=== PATIENT | female | born 1990 | race Caucasian/White ===

== ENCOUNTER 2017-09-29 13:22 | Inpatient (IN) | payer OTHER ==
[~2017-09-29] VITALS: Ht 152.4 cm; Wt 62.9 kg
[~2017-09-29 13:22] MED LIST: CLONAZEPAM0.5 M2 PO; DEXTROAMP-AMPHE20 MG PO; GEODON60 MG PO; PROPRANOLOL HCL20 M1 PO; TRAZODONE HCL50 M1 PO; ZIPRASIDONE HCL80 M1 PO; [UNRECOGNIZED DRUG - OTHER] PO
--- NOTE | 2017-09-29 15:19 | ED PSYCHIATRIC COMPLAINT ---
See Addendum History of Present Illness General Chief Complaint: Psychiatric Related Complaint Stated Complaint: OFF MEDS AND MANIC, PER PT Source: patient, family Exam Limitations: no limitations Vital Signs & Intake/Output Vital Signs & Intake/Output Vital Signs Date Time Temp Pulse Resp B/P B/P Pulse O2 O2 Flow FiO2 Mean Ox Delivery Rate 09/29 1622 98.2 80 20 140/84 09/29 1342 97.3 95 16 157/105 99 Room Air Allergies Coded Allergies: erythromycin base (HIVES 10/30/15) poison aleyda extract (HIVES/SWELLING 10/30/15) Reconcile Medications Dextroamphetamine/Amphetamine (Dextroamp-Amphetamin 20 MG Tab) 20 MG TABLET 1 TAB PO TID ADD/ADHD (Reported) Norethindrone (LYZA) 0.35 MG TABLET 1 TAB PO DAILY CONTROL (Reported) Propranolol HCl 20 MG TABLET 1 TAB PO TID RESTLESSNESS/ANXIETY (Reported) Ziprasidone Hydrochloride (Geodon) 60 MG CAPSULE 2 CAP PO QPM MENTAL HEALTH ( Reported) Triage Note: 27 Y/O FEMALE C/O BEING "OFF MEDS FOR 3 MONTHS". STATES SHE TAPERED OFF HER LITHIUM AND ADHD MEDICATION AND, PER MOTHER, "HASNT BEEN RIGHT SINCE". C/O "CONFUSION, CANT FINISH A SENTENCE, SUPPRESSED APPETITE". PT DENIES DRUG/ALCOHOL USE. DENIES SI/HI. CALM/COOPERATIVE Triage Nurses Notes Reviewed? yes : No Patient currently breastfeeds: No HPI: 27yoF w/ hx of OCD, ADHD and Bipolar, dx at 16yo here w/ depression. According to patient, she was since her dx, she has been on several medications including Geodon, Vyvanse and Letuda but intolerant 2/2 SE. She was started on [place] 600mg BID and Trazodone 25m,g PRN insomnia about 1yr ago. She was stopped taking her medications around Jul of last year because she had developed RUE tingling. Mother, who was at bedside, also reported patient might have weaned herself off of her medications because she was trying to get . Since stopping her meds, she has had cycles of moses (pressured speech, hypervigilance, going on shopping spree and hypersexuality) and depression ( lethargy, staring into space, confusion and dysorientation). She is currently in her depression cycle and has also been experiencing a lot of forgetfulness, hopelessness and anxiety about life. She denies using any other meds, drugs. She also denies any fevers, chills, N/V. LMP 09/15/17; sexually active (Shawn Hernandez) Past History Travel History Traveled to [place] past 21 day No Medical History Any Pertinent Medical History? 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 Yes (Yesy STUDENTShawn) Review of Systems Review of Systems Constitutional: Reports: see HPI. Denies: chills, diaphoresis, fever, malaise, weakness. (Shawn Hernandez) Physical Exam Physical Exam General Appearance: well developed/nourished, awake, comfortable, slow speech Neurological/Psychiatric: no motor/sensory deficits, awake, oriented x 3 SAD PERSONS SAD PERSONS Response Value Age <19 or >45 years? yes 1 Depression/Hopelessness? yes 2 Rational Thinking Loss? yes 2 Social Support? has support 0 Total 5 SAD PERSONS Done? yes (Yesy STUDENTShawn) Progress Differential Diagnosis: drug intoxication, drug overdose, drug withdrawal, electrolyte abnormality, hypoglycemia, hypothyroidism Plan of Care: Orders Procedure Date/time Status LITHIUM 10/03 0600 Active Regular Diet 09/30 B Active EKG 09/29 1828 Active Lab Add-on Test 09/29 1825 Active Patient Data - inpatient psych 09/29 182 Active Admit to inpatient psych 09/29 1821 Active TSH REFLEX 09/29 1505 Active GLYCOSYLATED HGB 09/29 1505 Active Add-on Test (ER Only) 09/29 1503 Active Add-on Test (ER Only) 09/29 1501 Active URINE DRUG SCREEN FOR ER ONLY 09/29 1436 Complete LITHIUM 09/29 1436 Active HUMAN BETA HCG SCREEN 09/29 1436 Active ETHANOL 09/29 1436 Active CBC WITHOUT DIFFERENTIAL 09/29 1436 Complete BASIC METABOLIC PANEL 09/29 1436 Active ED CRISIS PSYCH CONSULT 09/29 1436 Active Intake & Output 09/29 1429 Active Vital Signs 09/29 UNK Active Nursing Misc 09/29 UNK Active Alternative Nursing Therapy 09/29 UNK Active Activity/Ambulation 09/29 UNK Active Current Medications Sig/Patricio Start time Last Medication Dose Stop Time Status Admin Non-Formulary 0 DAILY@0800 09/30 0800 UNVr Medication (NON FORMULARY) Omeprazole 20 MG DAILY AC 09/30 0700 AC (Prilosec) [place] Carbonate 600 MG BID@0800,09/29 AC ([place] Carbonate) Acetaminophen 650 MG Q6P PRN 09/29 183 AC (Tylenol) Al Hydroxide/Mg 30 ML Q4-6 PRN PRN 09/29 1829 AC Hydroxide (Maalox Plus) Albuterol Sulfate 2 PUF Q6P PRN 09/29 183 AC (Ventolin) Benztropine Mesylate 1 MG Q6P PRN 09/29 183 AC (Cogentin 1 MG Tablet) Benztropine Mesylate 1 MG Q6P PRN 09/29 1829 AC (Cogentin) Gabapentin 300 MG Q6P PRN 09/29 183 AC (Neurontin) Haloperidol 5 MG Q6P PRN 09/29 1829 AC (Haldol) Haloperidol 5 MG Q6P PRN 09/29 183 AC (Haldol) Lorazepam 2 MG Q6P PRN 09/29 183 AC (Ativan) Magnesium Hydroxide 30 ML AT BEDTIME PRN 09/29 183 AC (Milk Of Magnesia) Nicotine 2 MG Q2P PRN 09/29 183 AC (Nicotine) Trazodone HCl 25 MG AT BEDTIME NEED.. 09/29 1829 AC (Desyrel) Laboratory Tests 09/29/17 1505: Anion Gap 11, Estimated GFR > 60, BUN/Creatinine Ratio 13.3, Glucose 105 H, Hemoglobin A1c Pending, Calcium 10.1, TSH &T3 &Free T4 Intrp 0.772, Total Beta HCG NEGATIVE, CBC w Diff NO MAN DIFF REQ, RBC 4.51, MCV 93.0, MCH 30.7, MCHC 33.0, RDW 14.9 H, MPV 8.8, Gran % 74.8, Lymphocytes % 18.5 L, Monocytes % 6.0, Eosinophils % 0.2, Basophils % 0.5, Absolute Granulocytes 8.8 H, Absolute Lymphocytes 2.2, Absolute Monocytes 0.7 H, Absolute Eosinophils 0, Absolute Basophils 0.1, [place] < 0.2 L, Serum Alcohol < 10.0 09/29/17 1445: Urine Opiates Screen < 100.00, Methadone Screen < 40, Barbiturate Screen < 60, Ur Phencyclidine Scrn < 6.00, Amphetamines Screen > 1450 H, U Benzodiazepines Scrn < 85, Urine Cocaine Screen < 50, Urine Cannabis Screen < 5.00 Patient to be evaluated w/ blood and urine tox screens, CBC, SMP, TSH and test. Crisis team consulted Care of patient will be continued by Dr. Rosario (Shawn Hernandez) Departure Departure Condition: Stable Referrals: Kaylynn Shepard MD (PCP/Family) Departure Forms: Customer Survey General Discharge Information (Shawn Hernandez) Departure Disposition: STILL A PATIENT Clinical Impression Primary Impression: Bipolar 1 disorder Psych Admission Note Psychiatric Admission: I have reviewed all the pertinent lab results and diagnostic results. KEERTHI GUARDADO will be admitted to our inpatient Psychiatric unit for treatment and care. (Marlene VARGAS,Imre Forrest) Critical Care Note Critical Care Note Critical Care Time: 30-74 min (Shawn Hernandez) ED Attending Observation Initial Observation Note: I have seen and personally examined KEERTHI GUARDADO on 09/29/17 at 1532. I agree with the current emergency department documentation. The disposition (admission or discharge) is uncertain at this time, she needs a period of observation for the following reason(s): The ED Nurse caring for this patient has been personally informed as to what the patient is being observed for. (Shawn Hernandez)
[2017-09-29 15:38] LABS: ABSOLUTE BASOPHIL COUNT 0.1 /CUMM (0.0-0.2); ABSOLUTE EOSINOPHIL COUNT 0 /CUMM (0.0-0.7); ABSOLUTE GRANULOCYTE CT 8.8 /CUMM (1.4-6.5); ABSOLUTE LYMPH COUNT 2.2 /CUMM (1.2-3.4); ABSOLUTE MONOCYTE COUNT 0.7 /CUMM (0.10-0.60); BASOPHIL % 0.5 % (0.0-2.0); EOSINOPHIL % 0.2 % (0-5); GRANULOCYTE % 74.8 % (42.2-75.2); MEAN CORPUSCULAR HGB 30.7 PG (27.0-31.0); MEAN PLATELET VOLUME 8.8 FL (7.4-10.4); PLATELET COUNT 467 /CUMM (130-400); RBC DISTRIBUTION WIDTH 14.9 % (11.5-14.5); RED BLOOD CELL CT 4.51 /CUMM (4.20-5.40); WHITE BLOOD CELL COUNT 11.8 /CUMM (4.8-10.8)
[2017-09-29 16:12] LABS: LITHIUM < 0.2 mmol/L (0.6-1.2)
--- NOTE | 2017-09-29 18:45 | ED PSYCH CRISIS CONSULTATION ---
Crisis Consult Basic Assessment Date of Consult: 09/29/17 Responsible Person/Accompanied By: mother Insurance Authorization: Insurance #1: Insurance name: LISA HOANG Phone number: Policy number: [id number] Group number: [id number] Authorization number: ED Provider: Patient's ED Provider: Imer Rosario MD Primary Care Physician: Patient's PCP: Kaylynn Shepard MD PCP's Current Psychiatrist: Michael Joshi MD Chief Complaint: Psychiatric Related Complaint Patient's Quote: none stated Present Illness: Patient is a 27 year old, single, female brought to the ED accompanied by her mother for "bizarre behaviors." She has a history of Bipolar Disorder, PTSD and ADHD. She is currently prescribed [place] Carbonate 600 mg 2x daily, Trazodone 50 mg at bedtime, and Vyvanse 50 mg daily and is currently in treatment at [facility]. During crisis consultation, patient did not verbally respond to questions, but shook her head "no" when asked if she is suicidal or homicidal and experiencing hallucinations. Patient mumbled "If I hurt myself, I hurt other people." Consulted with patient's mother, Nkechi who reports that patient has a history of medication non-compliance. Consulted with Monse Bryan APRN who reports concerns with mood lability, confusion, sleep disturbance, disorganization, distractibility, judgement, and poor insight. Case consulted with Dr. Joshi. Patient meets inpatient criteria and will be admitted to [facility] voluntarily. Patient's Address: [address] [place] [address] Other Phone Number: Who Do You Live With? Mother Family/Informants Interviewed: mother Allergies - Coded Allergies: erythromycin base (HIVES 10/30/15) poison aleyda extract (HIVES/SWELLING 10/30/15) Current Medications - Scheduled Medications Dextroamphetamine/Amphetamine (Dextroamp-Amphetamin 20 MG Tab) 20 MG TABLET 1 TAB PO TID ADD/ADHD #90 (Reported) Entered as Reported by Mignon Barfield on 04/20/16 1430 Norethindrone (LYZA) 0.35 MG TABLET 1 TAB PO DAILY CONTROL (Reported) Entered as Reported by Mignon Barfield on 04/20/16 1740 Propranolol HCl 20 MG TABLET 1 TAB PO TID RESTLESSNESS/ANXIETY #90 (Reported) Entered as Reported by Mignon Barfield on 04/20/16 1731 Ziprasidone Hydrochloride (Geodon) 60 MG CAPSULE 2 CAP PO QPM MENTAL HEALTH # 60 (Reported) Entered as Reported by Mignon Barfield on 04/20/16 1741 Laboratory Results: Laboratory Tests 09/29/17 1505: Anion Gap 11, Estimated GFR > 60, BUN/Creatinine Ratio 13.3, Glucose 105 H, Hemoglobin A1c Pending, Calcium 10.1, TSH &T3 &Free T4 Intrp 0.772, Total Beta HCG NEGATIVE, CBC w Diff NO MAN DIFF REQ, RBC 4.51, MCV 93.0, MCH 30.7, MCHC 33.0, RDW 14.9 H, MPV 8.8, Gran % 74.8, Lymphocytes % 18.5 L, Monocytes % 6.0, Eosinophils % 0.2, Basophils % 0.5, Absolute Granulocytes 8.8 H, Absolute Lymphocytes 2.2, Absolute Monocytes 0.7 H, Absolute Eosinophils 0, Absolute Basophils 0.1, [place] < 0.2 L, Serum Alcohol < 10.0 09/29/17 1445: Urine Opiates Screen < 100.00, Methadone Screen < 40, Barbiturate Screen < 60, Ur Phencyclidine Scrn < 6.00, Amphetamines Screen > 1450 H, U Benzodiazepines Scrn < 85, Urine Cocaine Screen < 50, Urine Cannabis Screen < 5.00 Past History Past Medical History Neurological: NONE EENT: NONE Cardiovascular: NONE Respiratory: asthma Gastrointestinal: NONE Hepatic: NONE Renal: NONE Musculoskeletal: NONE Psychiatric: bipolar disease, ADHD Endocrine: NONE Blood Disorders: NONE Cancer(s): NONE 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 She does appear to have good therapuetic relationships. Physical Limitations (Interventions): None noted Psychiatric Treatment History Psych Treatment Psychiatric Treatment Yes Inpatient Treatment Yes Outpatient Treatment Yes Location of Treatment [facility] Reason for Treatment Bipolar Disorder Dates of Treatment August, Response to Treatment Poor Diagnosis by History: Bipolar Disorder Substance Use/Abuse History Drug Use/Abuse Substances Used/Abused No First Use N/A Last Used N/A How much used/taken N/A How often N/A For how long N/A Route of use N/A Substance Abuse Treatment Substance Abuse Treatment Past Substance Abuse [place] No Inpatient Treatment No Outpatient Treatment No Location of Treatment N/A Reason for Treatment N/A Dates of Treatment N/A Response to Treatment N/A Current Mental Status Mental Status Orientation: Current situation Affect: Flat Speech: Poverty Neuro-vegetative: Anhedonia, Appetite Decreased, Concentration Poor, Energy Decreased, Sleep Disturbance Appearance Appearance- Dress/Hygiene: Patient appeard unkempt, dressed in hospital scrubs and hospital mask. Behaviors Thought Process: Disorganized Memory: Impaired Insight: Poor SI/HI Risk Assessment Past Suicidal Ideation/Attempts Yes Current Suicidal Ideation/Att No Past Homicidal Ideation/Att: No Current Homicidal Ideation/Attempts No Degree of Intent: None Gravely Disabled: Inability, Lack of Insight, Poor Judgment Risk Factors: high anxiety/distress, SA/MH hospitalized Lethality Ratin PTSD Checklist PTSD Done? pt unable to participate ED Management Sitter: Yes Restraints: No DSM5/PS Stressors/Medical Prob Diagnosis' (DSM 5, Stressors, Medical): F31.4 Bipolar disorder, MRE depressed, severe, F90.0 ADD; Problems with primary support group, financial problems, history of trauma Current GAF: 25 Departure Disposition Psych Medical Clearance Date: 09/29/17 Medically Cleared at: 1715 Time Started: 1714 Time Ended: 1814 Psychiatrist Consulted: Michael Joshi MD Date Disposition Established: 09/29/17 Time Disposition Established: 1814 Plan for Disposition - Modality: Inpatient Psychiatry Facility: [facility] Rationale for Disposition: Patient presents to the ED due to medication non-compliance, mood lability, confusion, poor insight, disorganization. Case consulted with Dr. Joshi and patient will be admitted to [facility]. Type of IP Admission: Voluntary Referrals Kaylynn Shepard MD (PCP/Family)
--- NOTE | 2017-09-29 20:02 | IP CRISIS DIAG ASSESS PSYCH ---
See Addendum Diagnostic Assessment Basic Assessment Insurance Authorization: Insurance #1: Insurance name: LISA HOANG Phone number: Policy number: [id number] Group number: [id number] Authorization number: Awaiting a call from manager care reference number [id number] Primary Care Physician: Patient's PCP: Kaylynn Shepard MD PCP's Patient's Quote: none stated Present Illness: Patient is a 27 year old, single, female brought to the ED accompanied by her mother for "bizarre behaviors." She has a history of Bipolar Disorder, PTSD and ADHD. She is currently prescribed [place] Carbonate 600 mg 2x daily, Trazodone 50 mg at bedtime, and Vyvanse 50 mg daily and is currently in treatment at [facility]. During crisis consultation, patient did not verbally respond to questions, but shook her head "no" when asked if she is suicidal or homicidal and experiencing hallucinations. Patient mumbled "If I hurt myself, I hurt other people." Consulted with patient's mother, Nkechi who reports that patient has a history of medication non-compliance. Consulted with Monse Bryan APRN who reports concerns with mood lability, confusion, sleep disturbance, disorganization, distractibility, judgement, and poor insight. Case consulted with Dr. Joshi. Patient meets inpatient criteria and will be admitted to [facility] voluntarily. Patient's Address: [address] [place] [address] Other Phone Number: Who Do You Live With? Mother Feel Safe Where You Live? Yes Feel Safe in Your Relationship Yes Marital Status: single Do You Have Children? No Primary Language? Grenadian Language(s) Spoken At Home: Grenadian Family/Informants Interviewed: mother Allergies - Coded Allergies: erythromycin base (HIVES 10/30/15) poison aleyda extract (HIVES/SWELLING 10/30/15) Current Medications - Scheduled Medications Dextroamphetamine/Amphetamine (Dextroamp-Amphetamin 20 MG Tab) 20 MG TABLET 1 TAB PO TID ADD/ADHD #90 (Reported) Entered as Reported by Mignon Barfield on 04/20/16 1730 Norethindrone (LYZA) 0.35 MG TABLET 1 TAB PO DAILY CONTROL (Reported) Entered as Reported by Mignon Barfield on 04/20/16 1740 Propranolol HCl 20 MG TABLET 1 TAB PO TID RESTLESSNESS/ANXIETY #90 (Reported) Entered as Reported by Mignon Barfield on 04/20/16 1731 Ziprasidone Hydrochloride (Geodon) 60 MG CAPSULE 2 CAP PO QPM MENTAL HEALTH # 60 (Reported) Entered as Reported by Mignon Barfield on 04/20/16 1741 Consequences of Psych Med Use: N/A Lab Results: Laboratory Tests 09/29/17 1505: Anion Gap 11, Estimated GFR > 60, BUN/Creatinine Ratio 13.3, Glucose 105 H, Hemoglobin A1c Pending, Calcium 10.1, TSH &T3 &Free T4 Intrp 0.772, Total Beta HCG NEGATIVE, CBC w Diff NO MAN DIFF REQ, RBC 4.51, MCV 93.0, MCH 30.7, MCHC 33.0, RDW 14.9 H, MPV 8.8, Gran % 74.8, Lymphocytes % 18.5 L, Monocytes % 6.0, Eosinophils % 0.2, Basophils % 0.5, Absolute Granulocytes 8.8 H, Absolute Lymphocytes 2.2, Absolute Monocytes 0.7 H, Absolute Eosinophils 0, Absolute Basophils 0.1, [place] < 0.2 L, Serum Alcohol < 10.0 09/29/17 1445: Urine Opiates Screen < 100.00, Methadone Screen < 40, Barbiturate Screen < 60, Ur Phencyclidine Scrn < 6.00, Amphetamines Screen > 1450 H, U Benzodiazepines Scrn < 85, Urine Cocaine Screen < 50, Urine Cannabis Screen < 5.00 Toxicology Screen Completed? Yes Results: positive (prescribed Vyvanse) Symptoms of Use: N/A Past History Past Medical History Medical History: None/Denies Past Surgical History Surgical History Abuse/Trauma History Trauma History/Current Trauma: PTSD symptoms Victim or Perpretator? victim (N/A) Patient's Age at Time of Trauma: 0 (unknown) History of Trauma/Abuse Treatment? No Abuse/Trauma Treatment: N/A Legal History Current Legal Status: none Have you ever been arrested? No Number of Arrests: [address] Dates: N/A Contact Centre Supervisor N/A Psychosocial History Strengths/Capabilities: The patient appears to have good therapuetic relationships. Physical Limitations (Interventions): None noted Psychiatric Treatment History Psych Treatment Psychiatric Treatment Yes Inpatient Treatment Yes Outpatient Treatment Yes Location of Treatment [facility] Reason for Treatment Bipolar Disorder Dates of Treatment August, Response to Treatment Poor Diagnosis by History: Bipolar Disorder Risk Factors: high anxiety/distress, SA/MH hospitalized Substance Use/Abuse History Drug Use/Abuse minimum 12mo Hx Substances Used/Abused No First Use N/A Last Used N/A How much used/taken N/A How often N/A For how long N/A Route of use N/A Substance Abuse Treatment Substance Abuse Treatment Past Substance Abuse [place] No Inpatient Treatment No Outpatient Treatment No Location of Treatment N/A Reason for Treatment N/A Dates of Treatment N/A Response to Treatment N/A Sexual History Sexually Active Yes # of partners 1 Sexual Orientation Heterosexual Use of Protection No Sexual Concerns: None noted Education History Highest Level of Education: Associates degree in nursing Preferred Learning Style: visual Current Mental Status Mental Status Orientation: Current situation Affect: Flat Speech: Poverty Neuro-vegetative: Anhedonia, Appetite Decreased, Concentration Poor, Energy Decreased, Sleep Disturbance Appearance Appearance- Dress/Hygiene: Patient appeard unkempt, dressed in hospital scrubs and hospital mask. Behaviors Thought Process: Disorganized Memory: Impaired Insight: Poor SI/HI Risk Assessment - Minimum 6mo History- Past Suicidal Ideation/Attempts Yes Current Suicidal Ideation/Att No Past Homicidal Ideation/Att: No Current Homicidal Ideation/Attempts No Degree of Intent: None Gravely Disabled: Inability, Lack of Insight, Poor Judgment Risk Factors: high anxiety/distress, SA/MH hospitalized Lethality Ratin Needs/Init TX Plan/Goals: Patient to be admitted to inpatient unit for safety and symptom stabilzation. Patient to attend individual and family sessions, work with provider on medication evaluation and work with the social insurance specialist to transition back to care in the community. AUDIT-C Questionnaire: AUDIT-C Questionnaire: Response Value ETOH use in the past year Never 0 # drinks typical/day Doesn't Drink 0 6 or > drinks per occasion Never 0 Total 0 DSM5/PS Stressors/Medical Prob Diagnosis' (DSM 5, Stressors, Medical): F31.4 Bipolar disorder, MRE depressed, severe, F90.0 ADD; Problems with primary support group, financial problems, history of trauma Current GAF: 25
[2017-09-29 20:03] VITALS: BP 143/91
[2017-09-29] MEDS ORDERED: LITHIUM CARBON600 M1 PO (21:03)
[2017-09-29] MEDS ORDERED: VYVANSE50 M1 PO (21:07)
[2017-09-29] MEDS ORDERED: TRAZODONE HCL50 M1 PO (21:10)
[2017-09-29] MEDS ORDERED: MELATONIN3 M4 PO (21:13)
[2017-09-29] MEDS ORDERED: VENTOLIN HFA18 GM (21:58)
[2017-09-30 07:35] VITALS: BP 128/81
--- NOTE | 2017-09-30 08:27 | CPS PROVIDER INIT ASMT PSYCH ---
Psychiatric Admission Nurse Emergency's Note Reviewed: Yes Patient Seen and Examined: Yes Identifying Information: Patient is a 27-year-old single white female Chief Complaint: brought to the ED accompanied by her mother for "bizarre behaviors." Reaction to Hospitalization: The patient did not seem to mind being hospitalized History of Present Illness Onset of Illness: She has a history of Bipolar Disorder, PTSD and ADHD. She is currently prescribed Crafton Carbonate 600 mg 2x daily, Trazodone 50 mg at bedtime, and Vyvanse 50 mg daily and is currently in treatment at [facility]. During crisis consultation, patient did not verbally respond to questions, but shook her head "no" when asked if she is suicidal or homicidal and experiencing hallucinations. Patient mumbled "If I hurt myself, I hurt other people." Consulted with patient 's mother, Nkechi who reports that patient has a history of medication non- compliance. Consulted with Monse Bryan APRN who reports concerns with mood lability, confusion, sleep disturbance, disorganization, distractibility, judgement, and poor insight. Circumstances Leading to Admission: The patient's mother or observed bizarre behaviors, appointment to review the patient does not fact seem to be exhibiting psychotic symptoms and signs Problem(s) Justifying Need for Admission: Psychotic episode, it seems that it might be a mixed state of a bipolar disorder Past Psychiatric History Past Diagnosis(es)- if any: Bipolar mood disorder Attention deficit disorder Past Precipitating Factors- if any: Unclear - Include inpatient and outpatient treatment Treatment History: The patient has been most recently in the intensive outpatient program at Before that, she was with outpatient psychiatric services (OPS) History of Suicide Attempts or Gestures in 8th grade. Patient reports getting bullied in school and she "swallowed a bottle of apsirin". Patient di not report this to anyone for several months and at the time she "threw up" all the pills. School counselor was told and wanted her to seek mental health treatment. Substance Abuse History: The patient used cocaine for 1 or 2 years between [employer] and senior high schools she also used marijuana in high school, she reported that she was using it "socially" for about a year or so The patient also reported that she used heroin around the year 2005 when she was a senior in high school she reported that she used about 2 bags daily for about 1 or 2 years, she was insufflating it denied injecting Allergies: Coded Allergies: erythromycin base (HIVES 10/30/15) poison aleyda extract (HIVES/SWELLING 10/30/15) Home Med List: Crafton, Vyvanse - Include any medical condition(s) that may - impact the patient's recovery/remission Past History Medical History Neurological: NONE EENT: NONE Cardiovascular: NONE Respiratory: asthma Gastrointestinal: NONE Hepatic: NONE Renal: NONE Musculoskeletal: NONE Psychiatric: bipolar disease, ADHD Endocrine: NONE Blood Disorders: NONE Cancer(s): NONE 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 - #1 Recognizing dangerous situations. - #2 Coping Skills. - #3 Basic information about quitting. Status of Tobacco Cessation Counseling: #1, #2 AND #3 Completed Cessation Med Status Nicotine Gum Ordered Alcohol Screening - ETOH screen POS if BAL >=80 or Audit-C>= M4/F3 Audit-C Score from Diag Assess: 0 Blood Alcohol Level: Laboratory Tests 09/29 1505 Toxicology Serum Alcohol (<10 MG/DL) < 10.0 Alcohol Use Screening Results: Neg per Audit C &/or BAL - If ETOH counseling indicated - the following topics are required. - #1 Express concern about the patient's - drinking at unhealthy levels, include informing - of national norms for moderate drinking: - men <= 14 drinks/week, max 4 drinks/occasion - women <= 7 drinks/week, max 3 drinks/occasion - #2 Providing feedback, including linking alcohol to - negative physical effects (liver injury, hypertension) - negative emotional effects (relationship problems and - depression) - negative occupational consequences (reduced work - performance) - #3 Advising the patient to abstain from alcohol or - to drink below national norms for moderate drinking - (as listed above). Status of ETOH Use Counseling: N/A B/C NO ETOH Use Metabolic Screening - Screen if on a Neuroleptic Medication - Metabolic screening should include: - Blood Pressure, BMI, Glucose or Hgb A1c, & a - Lipid profile from within the past 365 days. Metabolic Screening ([X]) Not Applicable, patient not on a neuroleptic. Exam and Plan Mental Status Examination Ambulation Status: Steady gait Appearance: Dark circles around her eyes Attitude towards examiner: She was cooperative Psychomotor activity: Slightly elevated psychomotor activity/fidgetiness Behavior: Laughed to herself a few times, very likely she is responding to internal stimuli Quality of speech: It was not pressured, some tangents, it was not slurred Affect: Labile, she cried and laughed several times during the interview, the laughter seemed inappropriate for the content of the conversation Mood: The patient described her mood as up and down Suicidal Ideation: She denied thinking of suicide Homicidal Ideation: She denied thinking of violence or homicide Hallucinations: She initially acknowledged hallucinations and she insisted that it was "thoughts " Paranoid/Delusional Material: She did acknowledge feeling paranoid, she described herself as being very guarded and suspicious, there were no specific delusional content however Difficulties with thought organization: She did seem to be struggling to organize her thoughts into a coherent conversation Insight: Partial Judgment: Impaired Orientation: Oriented to time place and person Cognition: Struggling with attention and concentration, struggling with information processing, most likely because of her underlying significant thought disorder and most likely hallucinations as well Memory Function: Did not seem to have a gross impairment in his short-term memory Estimate of intellectual functioning: Average Assets/Strengths Patient Identified Assets/Strengths: She seems to be likable, honest, and she has a supportive family, and a good education Impression/Plan Impression and Plan: A 27-year-old single white female who presented from the intensive outpatient program for what seems to be psychotic state most likely a mixed state of a bipolar, denying thoughts of suicide or homicide but showing no objective evidence of some psychosis going on - Include all active medical diagnosis that require tx DSM 5 Diagnosis(es): Bipolar 1 and mixed state, rule out other psychotic disorders - Initial Tx Plan for Active Psych & Medical Conditions Treatment Plan: Inpatient psychiatric care with safety checks every 15 minutes Crafton was resumed at 600 mg a twice daily and the blood level will be obtained in 4 days or so The patient was prescribed 1 mg of Ativan times once after the interview because she was extremely distraught and seems to be actively hallucinating probably although she denied it Nursing assessments Vital signs and education about symptoms and medication by the nursing staff The social work staff to obtain collateral information made with the patient for full biopsychosocial assessment and reach out to family members as well as outside providers to coordinate aftercare plans and discharge plans The patient will be placed on regular Ativan 1 mg at bedtime for at least the next 3 nights or so as she seems to have been struggling with significant insomnia with dark circles around her eyes probably contributing to the current episode 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 Factors: Compliance with medications and regular sleep cycle
[2017-09-30 11:49] VITALS: BP 139/94
[2017-09-30 15:46] VITALS: BP 133/75
--- NOTE | 2017-09-30 16:04 | SOCIAL WORKER PROG NOTE PSYCH ---
Social Work Progress Note Progress Note Obdulia was struggling during our meeting this afternoon. She was feeling confused. Couldn't speak to the details of what she has been going through, but she did share that she has had alot of up and down moods and if she's not laughing she's crying. She exhibited those behaviors during our brief meeting. She was also able to say that she was having issues regarding things at home, issues with transportation and issues with her medications. She doesn't feel her meds are working. She shared that she lives with her Mom and that she is open to having a family meeting. She also has a supportive boyfriend (Rufus). She says she has been extremely emotional for months. She reports panic attacks to the point she becomes inmobile and feels like she can't breathe. She is in desperate need to feel better. She stated she has been hopeless at times and has thought of harming herself during those moments. I didn't push her to share more than she was comfortable with and could handle because she was so tearful and struggling to share her thoughts. Called her Mom . Set up a meeting for Tuesday at 1pm. Mom was planning to bring her clothes tonight.
--- NOTE | 2017-09-30 16:18 | History & Physical ---
General Information and HPI MD Statement: I have seen and personally examined KEERTHI GUARDADO and documented this H&P. The patient is a 27 year old F who presented with a patient stated chief complaint of bizarre behavior. Source of Information: patient Exam Limitations: no limitations History of Present Illness: 27-year-old female with past medical/psychiatric history significant for Bipolar Disorder, PTSD and ADHD who is admitted to Inpatient Psychiatry with bizarre behavior. Apparently patient was found to be somewhat confused. She was noncompliant with medications. She was not acting right and her family was concerned. She was seen in outpatient psychiatry. Currently patient reports that she is confused because she is receiving Ativan. She thinks that Ativan is not agreeing with her. She currently denies any aches or pains, nausea, vomiting, diarrhea, constipation. Allergies/Medications Allergies: Coded Allergies: erythromycin base (HIVES 10/30/15) poison aleyda extract (HIVES/SWELLING 10/30/15) Home Med list Albuterol Sulfate (Ventolin Hfa) 90 MCG HFA.AER.AD 2 PUFF 4 TIMES DAY PRN ASTHMA (Reported) Lisdexamfetamine Dimesylate (Vyvanse) 50 MG CAPSULE 50 MG PO DAILY ATTENTION DEFICIT (Reported) [place] Carbonate 600 MG CAPSULE 600 MG PO BID MOOD STABILIZER (Reported) Melatonin 3 MG TABLET 3 MG PO AT BEDTIME SLEEP AID (Reported) Trazodone HCl 50 MG TABLET 25 MG PO AT BEDTIME SLEEP AID (Reported) Past History Travel History Traveled to [place] past 21 day No Medical History Neurological: NONE EENT: NONE Cardiovascular: NONE Respiratory: asthma Gastrointestinal: NONE Hepatic: NONE Renal: NONE Musculoskeletal: NONE Psychiatric: bipolar disease, ADHD Endocrine: NONE Blood Disorders: NONE Cancer(s): NONE 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 unknown Power of Maintenance Inspector/HCP? unknown Functional Ability ADLs Independent: dressing, eating, toileting, bathing. Ambulation: independent IADLs Independent: shopping, housework, finances, food prep, telephone, transportation , medication admin. Review of Systems Review of Systems Constitutional: Reports: see HPI. EENTM: Reports: see HPI. Cardiovascular: Reports: see HPI. Respiratory: Reports: see HPI. GI: Reports: see HPI. Musculoskeletal: Reports: see HPI. Neurological/Psychological: Reports: see HPI. Exam & Diagnostic Data Last 24 Hrs of Vital Signs/I&O Vital Signs Date Time Temp Pulse Resp B/P B/P Pulse O2 O2 Flow FiO2 Mean Ox Delivery Rate 09/30 1546 88 133/75 09/30 1149 83 139/94 09/30 0735 97.9 85 128/81 09/29 2002 98.3 83 143/91 09/29 1901 Room Air 09/29 1622 98.2 80 20 140/84 Intake & Output 09/30 1600 09/30 0800 09/30 0000 Intake Total Output Total Balance Patient 139 lb Weight Physical Exam General Appearance Alert, No Acute Distress, somewhat confused Skin No Rashes HEENT PERRLA Neck Supple Cardiovascular Regular Rate, Normal S1, Normal S2 Lungs Clear to Auscultation Abdomen Normal Bowel Sounds, Soft, No Tenderness Neurological Cranial Nerves II through XII: intact. Last 24 Hrs of Labs/Sudarshan: Laboratory Tests 09/29 09/29 1505 1445 Chemistry Sodium (137 - 145 mmol/L) 139 Potassium (3.5 - 5.1 mmol/L) 4.3 Chloride (98 - 107 mmol/L) 107 Carbon Dioxide (22 - 30 mmol/L) 21 L Anion Gap (5 - 16) 11 BUN (7 - 17 mg/dL) 8 Creatinine (0.5 - 1.0 mg/dL) 0.6 Estimated GFR (>60 ml/min) > 60 BUN/Creatinine Ratio (7 - 25 %) 13.3 Glucose (65 - 99 mg/dL) 105 H Hemoglobin A1c (4.2 - 5.8 %) 4.9 Calcium (8.4 - 10.2 mg/dL) 10.1 TSH &T3 &Free T4 Intrp (0.270 - 4.20 uIU/mL) 0.772 Total Beta HCG (NEGATIVE) NEGATIVE Hematology CBC w Diff NO MAN DIFF REQ WBC (4.8 - 10.8 /CUMM) 11.8 H RBC (4.20 - 5.40 /CUMM) 4.51 Hgb (12.0 - 16.0 G/DL) 13.9 Hct (37 - 47 %) 42.0 MCV (81.0 - 99.0 FL) 93.0 MCH (27.0 - 31.0 PG) 30.7 MCHC (33.0 - 37.0 G/DL) 33.0 RDW (11.5 - 14.5 %) 14.9 H Plt Count (130 - 400 /CUMM) 467 H MPV (7.4 - 10.4 FL) 8.8 Gran % (42.2 - 75.2 %) 74.8 Lymphocytes % (20.5 - 51.1 %) 18.5 L Monocytes % (1.7 - 9.3 %) 6.0 Eosinophils % (0 - 5 %) 0.2 Basophils % (0.0 - 2.0 %) 0.5 Absolute Granulocytes (1.4 - 6.5 /CUMM) 8.8 H Absolute Lymphocytes (1.2 - 3.4 /CUMM) 2.2 Absolute Monocytes (0.10 - 0.60 /CUMM) 0.7 H Absolute Eosinophils (0.0 - 0.7 /CUMM) 0 Absolute Basophils (0.0 - 0.2 /CUMM) 0.1 Toxicology Urine Opiates Screen (>2000 NG/ML) < 100.00 Methadone Screen (>300 NG/ML) < 40 Barbiturate Screen (>200 NG/ML) < 60 Ur Phencyclidine Scrn (>25 NG/ML) < 6.00 Amphetamines Screen (>1000 NG/ML) > 1450 H U Benzodiazepines Scrn (>200 NG/ML) < 85 [place] (0.6 - 1.2 mmol/L) < 0.2 L Urine Cocaine Screen (>300 NG/ML) < 50 Urine Cannabis Screen (>50 NG/ML) < 5.00 Serum Alcohol (<10 MG/DL) < 10.0 Assessment/Plan Assessment: 27-year-old female who is admitted to Inpatient Psychiatry with the bipolar disorder, disorganized behavior and confusion. I informed the staff nurses at Inpatient Psychiatry about patient's concern for Ativan giving her confusion and I requested that this should be related to the psychiatrist. I reviewed patient's labs. For the psych management will be up to psychiatry. As Ranked By This Provider Problem List: 1. Anxiety 2. Depression 3. Bipolar disorder Miscellaneous Miscellaneous Documentation Attending Case Discussed With: Marilyn Roche M.D. Primary Care Physician: Kaylynn Shepard MD Patient sees these Specialists psych Level of Patient Care: ZEENAT Haq
[2017-09-30 20:01] VITALS: BP 130/77
[2017-10-01 07:44] VITALS: BP 129/67
[2017-10-01 12:26] VITALS: BP 119/73
--- NOTE | 2017-10-01 12:49 | CP SOUTH PROGRESS NOTE PSYCH ---
Psych (Inpt) Progress Note Progress Note Include the following elements, when applicable: Involvement in the active treatment of the patient with behavioral observations of the patient and the patient's response to the treatment. Review of the ongoing treatment process in the context of the treatment plan. Indication of how multi-disciplinary staff members are carrying out the treatment plan. Plans for future interventions and recommendations for revision of the treatment plan. Liaison with other physicians/providers. Progress Note: Chart reviewed, progress discussed with nursing staff. Interviewed patient this morning. She was pleasant and cooperative, however demonstrated some behavioral disorganization, including having difficulty orienting her body to properly shake my hand, rather having to get up from her bed and walk around the bed in an unusual way. She does report that she is feeling "better ". "I feel like my mood is more even". She denies any SI or HI or any auditory or visual hallucinations. She does note that while Ativan was helpful for sleep for her she felt as though it was "too powerful", and asks if this dose can be reduced at all, which I agreed to do for her. Aside from sedation, she denies any side effects of her current medication regimen. Vital signs are within normal limits. No new laboratory results Mental status exam: Obdulia is a well-groomed female of apparent stated age. Her behavior is somewhat disorganized as elaborated above. Her eye contact is fair. Speech is somewhat monotonous, somewhat quiet. Mood was "a little bit more even ", affect was odd, mildly labile. Thought process was circumstantial. Content without SI or HI. She denies perceptual disturbances. Cognition is grossly intact. Insight and judgment were fair. Assessment and plan: Likely mixed state with psychotic features that is improving, though with some residual disorganization. Sleep also appears to be resolving. Will continue present management aside from reducing HS Ativan from 1 mg to 0.5 mg due to patient and nursing reported over sedation.
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
[2017-10-01 16:01] VITALS: BP 151/83
[2017-10-01 19:36] VITALS: BP 136/81
[2017-10-02 07:37] VITALS: BP 138/75
[2017-10-02 12:11] VITALS: BP 117/62
--- NOTE | 2017-10-02 12:44 | CP SOUTH PROGRESS NOTE PSYCH ---
Psych (Inpt) Progress Note Progress Note Include the following elements, when applicable: Involvement in the active treatment of the patient with behavioral observations of the patient and the patient's response to the treatment. Review of the ongoing treatment process in the context of the treatment plan. Indication of how multi-disciplinary staff members are carrying out the treatment plan. Plans for future interventions and recommendations for revision of the treatment plan. Liaison with other physicians/providers. Progress Note: Chart reviewed, progress discussed with nursing staff. Interviewed patient this morning. Again, pleasant, cooperative, engaging with interview, but quite oddly related. She noted adequate sleep last night, noted that reduction of Ativan from 1 mg to 0.5 mg at night reduced her over sedated and groggy feeling. Today she notes that her mood is "continuing to get a bit more level. She denies any AVH. She denies any SI or HI. Does note some "mental fogging ". However, like to continue on her medications as they are currently prescribed. Vital signs are within normal limits. No new laboratory results Mental status exam: Obdulia is a well-groomed female of apparent stated age. Her behavior remains mildly disorganized though improved since yesterday. Her eye contact is fair. Speech is somewhat monotonous, somewhat quiet. Mood was "a little bit more even", affect was odd, mildly labile. Oddly related. Thought process was circumstantial. Content without SI or HI. She denies perceptual disturbances. Cognition is grossly intact. Insight and judgment were fair. Assessment and plan: Likely mixed state with psychotic features that is improving, though with some residual disorganization. Sleep also appears to be resolving. Will continue present management. A lithium level is scheduled for tomorrow, Tuesday.
[2017-10-02 16:06] VITALS: BP 129/71
[2017-10-02 19:50] VITALS: BP 130/66
[2017-10-03 07:35] VITALS: BP 120/74
--- NOTE | 2017-10-03 08:12 | CP SOUTH PROGRESS NOTE PSYCH ---
Psych (Inpt) Progress Note Progress Note Vital Signs Date Time Temp Pulse B/P 10/03 0735 99.2 75 120/74 10/02 1950 98.5 86 130/66 10/02 1606 78 129/71 10/02 1211 85 117/[address] Wise progress notes from the weekend. The patients progress and treatment/aftercare plans were reviewed in the treatment team meeting this morning. Treatment team included: Nursing, social work, group therapy and activity therapy staff, and psychiatrist There are no new laboratory results today. Mental status exam: Obdulia seemed to get easily overwhelmed. She showed some paranoia thought process was circumstantial and mildly disorganized Mood was labile she denied SI or HI. She denies perceptual disturbances. Cognition is grossly intact. Insight and judgment were fair. Assessment and plan: Likely mixed state with psychotic features that is improving, though with some residual disorganization and paranoia. Will continue present management. A lithium level is scheduled for tomorrow, Tuesday. Plan: Increase lithium to 600 mg Q 08:00AM and Q 20:00 Laboratory Tests 10/03 0642 Toxicology [place] (0.6 - 1.2 mmol/L) 0.5 L
[2017-10-03 12:19] VITALS: BP 130/74
--- NOTE | 2017-10-03 13:40 | SOCIAL WORKER PROG NOTE PSYCH ---
Social Work Progress Note Progress Note Meeting held with Obdulia, her Mom, her boyfriend (Rufus) and Dr. Alford. Obdulia looked a little more organized today and less tearful, but continued to feel overwhelmed. She could only tolerate discussion for about a half hour and then she was ready to stop. Rufus was able to report that changes were happening in her mood back around Thanksgiving through [place]. Obdulia acknowledged that she wasn't taking her meds consistently. Both Rufus and Mom were concerned about who they could speak to when things aren't going well. Talked about Obdulia permitting releases for them with whomever she may be working with. Dr. Alford talked about the benefit of possibly adding an antipsychotic if Obdulia would permit. Obdulia was resistant to the idea before, due to the stigma attached to taking an antipsychotic. She didn't voice any concerns this meeting , but didn't say yes either. 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 Mom shared that she felt that Obdulia had been taking on too much, which also may have contributed to her decompensation. She was working 11-7am and working at [employer]. She will consider cutting back her hours and not working overnights. Talked about continuing to stay for another day or two to assess how she's doing. She is not interested in attending IOP. She would prefer to just see Dr. White and Karyn Mc her therapist. Dr. Alford will reach out to Dr. White.
[2017-10-03 16:15] VITALS: BP 120/65
[2017-10-03 19:48] VITALS: BP 119/75
[2017-10-04 07:38] VITALS: BP 115/61
--- NOTE | 2017-10-04 08:58 | CP SOUTH PROGRESS NOTE PSYCH ---
Psych (Inpt) Progress Note Progress Note Vital Signs Date Time Temp Pulse B/P O2 Flow FiO2 Rate 10/04 0738 98.3 82 115/61 10/03 1948 98.9 72 119/75 10/03 1615 81 120/65 10/03 1219 83 130/74 The patients progress and treatment/aftercare plans were reviewed in the treatment team meeting this morning. Treatment team included: Nursing, social work, group therapy and activity therapy staff, and psychiatrist There are no new laboratory results today. Mental status exam: Obdulia seemed to be in better spirits today, she did talk more about her mental expereinces she acknowledged that she gets easily overwhelmed because of a perefectionist streak (she called it OCPD). She showed less paranoia today, and her thought process was less disorganized Mood was less labile than yesterday (still had one episode of tearfulness she denied SI or vioelnt thoughts/HI. She denies perceptual disturbances. Cognition is grossly intact. Insight and judgment were fair. Assessment: Obdulia is a 27-year-old single white female who was admitted because what seemed a likely mixed state with psychotic features. She continues to show improvement day to day Plan: Continue lithium 600 mg Q 08:00AM and Q 20:00 Add Fluphenazine 1 mg at bedtime for ruminations/obsessive thoughts and mild thought disorder/paranoia
[2017-10-04 12:04] VITALS: BP 120/68
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
[2017-10-04 16:04] VITALS: BP 125/69
[2017-10-04 20:02] VITALS: BP 127/76
[2017-10-05 07:31] VITALS: BP 117/60
--- NOTE | 2017-10-05 08:08 | CP SOUTH PROGRESS NOTE PSYCH ---
Psych (Inpt) Progress Note Progress Note Vital Signs Date Time Temp Pulse B/P O2 O2 Flow FiO2 Delivery Rate 10/05 0731 98.8 92 117/60 10/04 2002 99.0 80 127/76 10/04 1604 72 125/69 10/04 1204 77 120/68 The patients progress and treatment plan/aftercare plans were reviewed in the treatment team meeting this morning. Treatment team included: Nursing, Social work, Group therapy and activity therapy staff, and psychiatrist There are no new laboratory results today. Mental Status on 10/05/2017: (Anabell Pelaez LCSW and I interviewed patient together) Obdulia seemed to be in good spirits. She appeared less overwhelmed. There were no dark circles around her eyes (she had them the past few days). She said she slept 7 hours last night. She did not seem paranoid today. Her thoughts were more organized, and her mood was less depressed/less anxious. There was no tearfulness in today's interview (she was seen with Anabell Pelaez LCSW ) Obdulia denied feeling hopeless or wishing . She denied thinking of suicide. She denied vioelnt thoughts or HI. She denies perceptual disturbances. She does struggle with difficulties with attention, concentration, and information processing. Assessment: Obdulia is a 27-year-old single White female who was admitted because of what seemed like a mixed state with psychotic features. Obdulia acknowledged feeling overwhelmed in part because of a perefectionist streak (she called it OCPD). Since her admission on 09/29/2017, she has shown significant improvement in the following domains: thoughts are no longer disorganized, sleeping well, anxiety went down, paranoia went down, and she has better outlook on life/no longer feeling overwhelmed Plan: Discharge Home to follow up either with [facility] or with Dr. White Please see discharge summary for discharge medications, follow up appointments, hospital course and discharge diagnoses>
[2017-10-05] MEDS ORDERED: LITHIUM CARBON300 M4 PO (08:40)
[2017-10-05] MEDS ORDERED: ATIVAN1 M1 PO (08:40)
[2017-10-05] MEDS ORDERED: LITHIUM CARBON150 M1 PO (08:40)
[2017-10-05] MEDS ORDERED: FLUPHENAZINE HCL1 M1 PO (08:40)
[2017-10-05] MEDS ORDERED: OMEPRAZOLE20 M2 PO (08:40)
--- NOTE | 2017-10-05 08:40 | SOCIAL WORKER PROG NOTE PSYCH ---
Social Work Progress Note Progress Note Dr. Alexander and I met with Obdulia. She had make up on and had just showered. I asked what her thoughts were this morning about leaving vs. staying. She said she definetely wants to leave, but wants a concrete plan. Dr. Alexander had spoken with Dr. White and was agreeable to seeing her in [facility], but stated she needed to be in individual therapy. Obdulia is already connected to Karyn Gama, so she just needs a follow up appt. She signed a release to have me call her to schedule something. She said her Mom was here yesterday and they talked. She is happy her Mom is in therapy now. Financial stressors weren't really discussed. She said it is something that they have struggled with for years and they just try to make things work. Encouraged her again to focus on her own well-being and taking care of herself. Talked about feeling very overwhelmed and anxious prior to admission. She didn't describe any evidence of hallucinations or paranoia related to feeling anyone was out to harm her, ideas of reference or other types of paranoid thoughts. She basically was catostraphotizing everything and thought that the worst was going to happen. For example she was going to be evicted to do not being able to pay the rent. She seems to be in a better place today and seems more rational. Set up [facility] appts. for intake tomorrow at 9am with Shanelle Shukla LCSW and an appt. with Dr. White for 10/10 at 2pm.
--- NOTE | 2017-10-05 09:13 | Patient Discharge Instructions ---
Psych Discharge Inst General Discharge Information Reason for Admission: Mixed episode of Bipolar Psy Discharge Primary Diag+ Bipolr I, mixed episode Summary Tests/Major Procedures Lab BUN 8 mg/dL 09/29/17 1505 BUN/Creatinine Ratio 13.3 % 09/29/17 1505 Creatinine 0.6 mg/dL 09/29/17 1505 Estimated GFR > 60 ml/min 09/29/17 1505 Hemoglobin A1c 4.9 % 09/29/17 1505 TSH &T3 &Free T4 Intrp 0.772 uIU/mL 09/29/17 1505 Total Beta HCG NEGATIVE 09/29/17 1505 [place] 0.5 mmol/L L 10/03/17 0642 Studies Pending at DC: None Patient Instructions Contact Information Your Psychiatrist on [facility] was Dilip Alexander MD * If you are experiencing an emergency related to this hospitalization, please call [phone] to contact the treating psychiatrist or the psychiatrist-on- call. * To Request a copy of your medical records, please contact the Medical Records Department at [phone]. * To request results of studies pending at the time of discharge, please call [phone]. * Continue your Medications until directed to stop by your Healthcare provider. General Medication Information Please continue to take your new medications and your continued home medications , unless otherwise indicated on your discharge medication list, or unless directed by your MD or SHREDDER TENDER PEAT to stop them. Special Instructions Diet Regular Activity Normal - Tobacco Use Treatment Offered Post DC Medications Offered: Script Given-See Med List Post DC Tobacco Treatment Plan: Refused Tobacco Tx Pgm - EtOH/Drug Use D/O Treatment Offered Post DC Medications Offered: NA-No EtOH/Drug Use D/O Post DC EtOH/SubAbuse TX Plan: NA-No EtOH/Drug Use D/O Metabolic Screening Patient on a neuroleptic(s) . Enter below results for Hemoglobin A1C, and lipid panel if obtained during the last 365 days. BMI: 27.000 Blood Pressure: 117/60 Laboratory Results From [facility] (If applicable): Note: Patient was not on a neuroleptic until the very last night in the hospital , she will givem a lab slip to do a follow up metabolic profile following discharge with 14 hours fasting Lab 25-OH Vitamin D Total 25.5 ng/ml L 05/20/16 0840 Cholesterol/HDL Ratio 5 % H 10/13/16 0840 HDL Cholesterol 36 mg/dL L 05/20/16 0840 Hemoglobin A1c 4.9 % 09/29/17 1505 LDL Cholesterol, Calc 134 mg/dL H 05/20/16 0840 Advance Directives Does the Patient have Medical Advance Directives No/Refused further info Does Pt have Psychiatric Advance Directives? No/Refused further info Does Patient have a Designated Surrogate Decision Maker: No Information About Psychiatric Advance Directives Provided? Refused Discharge Plan Post Hospital Treatment Plan: Home with Dr. White and/or IOP
--- NOTE | 2017-10-05 11:35 | DISCHARGE SUMMARY REPORT-PSYCH ---
Visit Information Visit Dates/Diagnosis' Admission Date: 09/29/17 Discharge Date: 10/05/17 Reason for Admission: Mixed episode of Bipolar Psy Discharge Primary Diag: Bipolr I, mixed episode Hospital Course Significant Lab Findings: Lab 25-OH Vitamin D Total 25.5 ng/ml L 05/20/16 0840 Cholesterol 189 MG/DL 05/20/16 0840 HDL Cholesterol 36 mg/dL L 05/20/16 0840 Hemoglobin A1c 4.9 % 09/29/17 1505 LDL Cholesterol, Calc 134 mg/dL H 05/20/16 0840 Triglycerides 96 mg/dL 05/20/16 0840 Course Complications: Patient did not have any complications while she was in Inpatient Psychiatry Consultations: The patient had a history and physical examination while she was in Inpatient Psychiatry FOR DETAILS, See H&P by Dr. Marilyn Roche MD on 10/03/17 Brief Assessment was: (( 27-year-old female who is admitted to Inpatient Psychiatry with the bipolar disorder, disorganized behavior and confusion. I informed the staff nurses at Inpatient Psychiatry about patient's concern for Ativan giving her confusion and I requested that this should be related to the psychiatrist. I reviewed patient 's labs. For the psych management will be up to psychiatry. )) Allergies: Coded Allergies: erythromycin base (HIVES 10/30/15) poison alyeda extract (HIVES/SWELLING 10/30/15) Hospital Course/TX Response: The patient was seen on an crisis on 09/29/2017 and admitted that evening to Inpatient Psychiatry I saw the patient on 09/30/2017 for an initial psychiatric assessment, my impression was that she is suffering from a mixed state of bipolar 1 with psychotic features. However I feel that there is a possibility for underlying schizophrenia spectrum or other psychotic disorder to be ruled out. The patient 's lithium level was low It was resumed at 600 mg twice daily and the patient was prescribed 1 mg of Ativan because she was very distressed at the time of the interview she was also placed on a regular dose of Ativan 1 mg at bedtime for her mixed state as well as severe insomnia she has been suffering from for several weeks now. The patient's Vyvanse was was not prescribed/discontinued The patient was seen by Dr. Echols, who was the covering psychiatrist for October 01 and October 02, 2017. On Tuesday the plan was to reduce the Ativan at bedtime from 1 mg to half a milligram because the patient reported some sedation. There were no medication changes made for 02 October 2017 On September the lithium level came back as low at 0.5 mmol/L, so I adjusted the dose to 600 mg of lithium in the morning and 750 mg at bedtime On 04 October the patient agreed to take a low-dose neuroleptic, fluphenazine, because she was having thought disorder and paranoia The patient's condition on the day of discharge, October 05, 2017 Vital Signs Date Time Temp Pulse B/P O2 O2 Flow FiO2 Delivery Rate 10/05 0731 98.8 92 117/60 10/04 2001 99.0 80 127/76 10/04 1604 72 125/69 The patients progress and treatment plan/aftercare plans were reviewed in the treatment team meeting this morning. Treatment team included: Nursing, Social work, Group therapy and activity therapy staff, and psychiatrist There are no new laboratory results today. Mental Status on 10/05/2017: (Anabell Pelaez LCSW and I interviewed patient together) Obdulia seemed to be in good spirits. She appeared less overwhelmed. There were no dark circles around her eyes (she had them the past few days). She said she slept 7 hours last night. She did not seem paranoid today. Her thoughts were more organized, and her mood was less depressed/less anxious. There was no tearfulness in today's interview (she was seen with Anabell Pelaez LCSW ) Obdulia denied feeling hopeless or wishing . She denied thinking of suicide. She denied vioelnt thoughts or HI. She denies perceptual disturbances. She does struggle with difficulties with attention, concentration, and information processing. Assessment: Obdulia is a 27-year-old single White female who was admitted because of what seemed like a mixed state with psychotic features. Obdulia acknowledged feeling overwhelmed in part because of a perefectionist streak (she called it OCPD). Since her admission on 09/29/2017, she has shown significant improvement in the following domains: thoughts are no longer disorganized, sleeping well, anxiety went down, paranoia went down, and she has better outlook on life/no longer feeling overwhelmed Plan: Discharge Home to follow up either with IOP or with Dr. Boran Discharge HBIPS - Tobacco Use Treatment Offered Post DC Medications Offered: Script Given-See Med List Post DC Tobacco Treatment Plan: Refused Tobacco Tx Pgm - EtOH/Drug Use D/O Treatment Offered Post DC Medications Offered: NA-No EtOH/Drug Use D/O Post DC EtOH/SubAbuse TX Plan: NA-No EtOH/Drug Use D/O Metabolic Screening - Screen if on a Neuroleptic Medication - Metabolic screening should include: - Blood Pressure, BMI, Glucose or Hgb A1c, & a - Lipid profile from within the past 365 days. Metabolic Screening Patient on a neuroleptic(s) . Enter below results for Hemoglobin A1C, and lipid panel if obtained during the last 365 days. BMI: 27.000 Blood Pressure: 117/60 Laboratory Results From [facility] (If applicable): Note: Patient was not on a neuroleptic until the very last night in the hospital , she will givem a lab slip to do a follow up metabolic profile following discharge with 14 hours fasting Lab BUN 8 mg/dL 09/29/17 1505 BUN/Creatinine Ratio 13.3 % 09/29/17 1505 Creatinine 0.6 mg/dL 09/29/17 1505 Estimated GFR > 60 ml/min 09/29/17 1505 Hemoglobin A1c 4.9 % 09/29/17 1505 TSH &T3 &Free T4 Intrp 0.772 uIU/mL 09/29/17 1505 Total Beta HCG NEGATIVE 09/29/17 1505 [place] 0.5 mmol/L L 10/03/17 0642 Discharge Instructions General Discharge Information Multiple Neuroleptics: ([X]) Not Applicable Discharge Diet Regular Discharge Activity Normal DC Disposition: Discharge home, it looks like the patient may have changed her mind and wanted to do IOP at the last minute Referrals Ordered Referrals Provider Referral 10/06/17 For Groups: Outpatient Psychiatry Appt. with [facility] intake with Shanelle on 10/06/17 9am [address] [id number] Provider Referral 10/10/17 For Groups: Outpatient Psychiatry Appt. with Dr. White 10/10/17 2pm [address] [id number] Provider Referral 10/12/17 For Groups: Outpatient Psychiatry [facility] 10/12/[address] [place] [address] Provider Referral For Groups: [Karyn Mc ] Patient will follow up with her therapist Karyn Mc to schedule a follow up appt. Attempted to schedule appt. prior to discharge, but was not able to obtain for her. Call Karyn @ [phone] Prescriptions Stop taking the following medications: Eden Roc Carbonate (E[place] Carbonate) 600 MG CAPSULE ORAL TWICE DAILY Qty = 60 Lisdexamfetamine Dimesylate (Vyvanse) 50 MG CAPSULE ORAL DAILY Qty = 15 Trazodone HCl (Trazodone HCl) 50 MG TABLET ORAL AT BEDTIME Qty = 30 Melatonin (Melatonin) 3 MG TABLET ORAL AT BEDTIME Continue taking these medications: Albuterol Sulfate (Ventolin Hfa) 90 MCG HFA.AER.AD 2 PUFF 4 TIMES DAY as needed for ASTHMA Comments: NOT GIVEN DURING HOSPITAL. Start taking the following new medications: Fluphenazine HCl (Fluphenazine HCl) 1 MG TABLET 1 Milligram ORAL 2200 Qty = 30 No Refills Comments: Last Taken: 10/04/17 Time: 2200 LORazepam (Ativan) 1 MG TAB 1 Milligram ORAL AT BEDTIME Qty = 30 No Refills Comments: Last Taken: 10/04/17 Time: 2200 Eden [place] Carbonate (E[place] Roc Carbonate) 300 MG CAPSULE 600 Milligram ORAL TWICE DAILY Qty = 60 No Refills Comments: MORNING DOSE LAST TAKEN 10/05/17 @ 0800 = 600MG NIGHT DOSE LAST TAKEN 10/04/17 @ 2200 = 600MG * (SEE ADDITIONAL NIGHT DOSE ) * FOR TOTAL Omeprazole (Omeprazole) 20 MG CAPSULE.DR 20 Milligram ORAL DAILY BEFORE BREAKFAST Qty = 15 No Refills Comments: Last Taken: 10/05/17 Time: 0600 [place] Carbonate ([place] Carbonate) 150 MG CAPSULE 1 Capsule ORAL AT BEDTIME Qty = 15 No Refills Comments: NIGHTLY DOSE LAST TAKEN 10/04/17 @ 2200 = WITH A TOTAL NIGHTLY DOSE OF 750MG Studies Pending at Discharge None Copies To: Stephanie White MD
--- NOTE | 2017-10-05 13:22 | SOCIAL WORKER PROG NOTE PSYCH ---
Social Work Progress Note Faxed Referral(s) Referred To: [facility] Transition of Care Documents sent: Health Summary Faxed to: [facility] Fax #: [phone] Faxed by: Anabell Pelaez Date faxed: 10/05/17 Time Faxed: [phone]
== END 2017-10-05 12:30 | DRG 885 ==
LOC: ERH 13:22 → CP SOUTH 18:22 → ERHI 18:22 → ENTRNSPT 19:31 → EDTRNSPT 19:34 → EDTRNSPTSTS 19:34 → CMPTRNSPT 19:54 → CP SOUTH 20:02
PROVIDERS: Emergency Medicine
DX: F31.60 Bipolar disorder, current episode mixed, unspecified (principal)
CPT/HCPCS: 36415; 80307; 93005; 93010; G0480; J3230; J3490